=== PATIENT | female | born 2000 | race Caucasian/White ===

== ENCOUNTER 2021-09-16 12:48 | Outpatient (CLI) | payer OTHER ==
[2021-09-16] MEDS ORDERED: PRENATAL CAPLE1 EAC1 PO (13:07)
[2021-09-16] MEDS ORDERED: ECOTRIN81 MG PO (13:07)
== END 2021-09-16 15:55 | disposition home or self-care (01) ==
LOC: OBS/DEL 12:48
PROVIDERS: ATTEND Specialist
DX: O20.8 Other hemorrhage in early pregnancy (principal); O43.891 Other placental disorders, first trimester; Z3A.08 8 weeks gestation of pregnancy; M32.9 Systemic lupus erythematosus, unspecified

== ENCOUNTER → 2021-09-30 | Emergency (ER) | payer OTHER ==
[~2021-09-30] VITALS: Ht 154.9 cm; Wt 97.5 kg
[~2021-09-30] MED LIST: ECOTRIN81 MG PO; PRENATAL CAPLE1 EAC1 PO
== END | disposition home or self-care (01) ==
LOC: ER 21:37
DX: O03.9 Complete or unspecified spontaneous abortion without complication (principal)